=== PATIENT | male | born 1980 | race Caucasian/White ===

== ENCOUNTER → 2017-02-26 | Outpatient (CLI) | payer MEDICAID | LOC: CIMAGING 14:05 | PROVIDERS: ATTEND Family Medicine | DX: M48.54XA Collapsed vertebra, not elsewhere classified, thoracic region, initial encounter for fracture (principal) | CPT/HCPCS: 72100-PO ==

== ENCOUNTER 2018-06-05 21:25 | Emergency (ER) | payer MEDICAID ==
[2018-06-05] MEDS ORDERED: IBUPROFEN 600 MG TAB PO ONE (21:48)
[2018-06-05] MEDS ORDERED: HYDROCODONE/APAP 5/325 TAB PO ONE (21:48)
--- NOTE | 2018-06-05 21:51 | EDPHY ---
H & P Time Seen by Provider: 06/05/18 21:29 HPI/ROS: HPI Mechanical fall. Hit head. 38-year-old male by private vehicle with his care provider. The patient has a history of cerebral palsy and epilepsy. He is high functioning according to his care provider. He lives independently but has a home health care and case management system. He tripped in his kitchen, fell forward and struck the right side of his forehead. There was no loss of consciousness. He sustained a laceration to the right medial brow ridge. He denies any changes in vision. He is not on any antiplatelet or anticoagulant medications. Has no complaints of neck pain. Has had no nausea or vomiting. He is functioning at his baseline and has had no confusion. He denies any extremity pain. He has no other complaints. ROS: Constitutional: No fever, no chills. No weakness. Eyes: No discharge. No changes in vision. Respiratory: No cough. No shortness of breath. Cardiac: No chest pain, no palpitations. Gastrointestinal: No abdominal pain, no vomiting, no diarrhea. Musculoskeletal: No back pain. No neck pain. No extremity pain. Skin: No rashes. Neurological: No headache. No focal weakness or altered sensation. Past medical history: Cerebral palsy, epilepsy, tendon lengthening surgeries, concussions. Social history: As above. Nonsmoker. No alcohol. Physical Exam: General Appearance: Alert, no distress. This patient is responding to questions appropriately and in full sentences. This patient appears well- hydrated and well-nourished. Head: Normocephalic atraumatic except for a 3 cm straight but jagged edged laceration running vertically through the medial brow ridge. The eyelid is not involved. No bony step-off or deformity noted on palpation of this area. Please see wound care note for further details.. Face: Facial bones are stable on palpation. Eyes: Pupils equal and round and reactive to light, no pallor or injection. No lid erythema or edema. ENT, Mouth: Mucous membranes moist. Dentition is intact. No malocclusion of the jaw. No tongue lacerations or abrasions. Pharynx is clear. The bilateral nasal canals are clear. No septal hematoma. Neurological: Motor sensory function is intact. Cranial nerves are normal. Cerebellar function intact. Skin: Warm and dry, no rashes. No lacerations, abrasions or contusions. Musculoskeletal: Neck is supple and nontender. The trachea is midline. No midline cervical, thoracic, lumbar or sacral tenderness on palpation. No flank tenderness on palpation. Extremities are symmetrical, full range of motion. All joints in the bilateral upper and bilateral lower extremities range without pain or impingement. No tenderness on palpation of the long bones in the bilateral upper and bilateral lower extremities. Psychiatric: No agitation. No depression. Database: EKG: Imaging: Procedures: Procedure: Laceration repair. Verbal consent was obtained from the patient. The 3 cm laceration on the medial brow ridge in forehead was anesthetized in the usual fashion. The wound was irrigated, draped and explored to its base with a gloved finger. There were no deep structures involved. No foreign body was identified. The wound was repaired with 12, 6.0 Prolene sutures placed in interrupted fashion. The wound repair was tolerated well and there were no complications. The procedure was performed by myself. Emergency department course: Triage vital signs reviewed and are unremarkable. The patient was given 600 mg of Motrin and 1 [place] tablet for pain control. After suture repair, wound care was discussed with the patient and his correctional case records supervisor and home health care nurse. He feels comfortable going home at this time. His correctional case records supervisor feels comfortable with this. Follow-up and return to emergency department precautions reviewed. All of their questions were answered. The patient was discharged in good condition with his home healthcare provider. Differential Diagnosis: The differential diagnosis on this patient includes but is not limited to mechanical ground level fall, forehead laceration. Ocular injury, traumatic brain injury, cervical spine injury, other significant traumatic injury unlikely. This represents a partial list of diagnoses considered. These considerations are based on history, physical exam, past history, reassessment and diagnostic testing. Smoking Status: Never smoked Constitutional: Initial Vital Signs Temperature (C) 37 C 06/05/18 21:40 Heart Rate 87 06/05/18 21:40 Respiratory Rate 20 06/05/18 21:40 Blood Pressure 140/82 H 06/05/18 21:40 O2 Sat (%) 93 06/05/18 21:40 O2 Delivery Mode Room Air Allergies/Adverse Reactions: No Known Allergies Allergy (Verified 06/05/18 21:38) Home Medications: Medication Instructions Recorded Citalopram [celeXA 20 MG (RX)] 40 mg PO DAILY 02/23/12 OXcarbazepine [Trileptal 300mg 300 mg PO BID 02/23/12 (RX)] Resperidal 02/23/12 Ferrous Sulfate [Iron] 06/05/18 Fexofenadine HCl [Sharita Allergy] 06/05/18 Gabapentin [Gabapentin 800 mg] 06/05/18 Medical Decision Making - Data Points Medications Given: Discontinued Medications Hydrocodone Bitart/Acetaminophen ([place] 5/325) 1 tab PO EDNOW ONE Stop: 06/05/18 21:49 Last Admin: 06/05/18 21:53 Dose: 1 tab Ibuprofen (Motrin) 600 mg PO EDNOW ONE Stop: 06/05/18 21:49 Last Admin: 06/05/18 21:54 Dose: 600 mg Departure - Departure Disposition: Home, Routine, Self-Care Clinical Impression: Laceration of eyebrow and forehead Condition: Good Instructions: Care For Your Stitches (ED), Facial Laceration (ED) Additional Instructions: Read and follow provided instructions. Sutures are to be removed in 7 days. You can return here to have the sutures removed. Follow-up with your primary care physician in 1-2 days for re-evaluation as needed. Ibuprofen dosin mg every 6 hours with meals for the next 3 days only. Take only as needed for pain. Return to the emergency department for worsening headache, bleeding, confusion, nausea and vomiting or other serious concerns. Referrals: Ross Dempsey DO [Doctor of Osteopathy] - As per Instructions
[2018-06-05 22:37] VITALS: BP 132/78
== END 2018-06-05 22:37 | disposition home or self-care (01) ==
LOC: CED 21:25
PROC: 0HQ1XZZ Repair Face Skin, External Approach (ICD-10-PCS; principal; 2018-06-05)
DX: S01.81XA Laceration without foreign body of other part of head, initial encounter (principal); G80.9 Cerebral palsy, unspecified; G40.909 Epilepsy, unspecified, not intractable, without status epilepticus; W01.10XA Fall on same level from slipping, tripping and stumbling with subsequent striking against unspecified object, initial encounter; Y92.000 Kitchen of unspecified non-institutional (private) residence as the place of occurrence of the external cause
CPT/HCPCS: 99283-ER

== ENCOUNTER → 2018-06-11 | Outpatient (CLI) | payer MEDICAID | LOC: EMCIMAGING 11:10 | PROVIDERS: ATTEND Psychiatry & Neurology Neurology | DX: Z13.820 Encounter for screening for osteoporosis (principal); G80.9 Cerebral palsy, unspecified; G40.909 Epilepsy, unspecified, not intractable, without status epilepticus | CPT/HCPCS: 77080-PN ==